=== PATIENT | female | born 1935 | race Caucasian/White ===

== ENCOUNTER 2017-10-05 09:08 | Inpatient (IN) | payer OTHER ==
[~2017-10-05] VITALS: Ht 152.4 cm; Wt 68.9 kg
[2017-10-05 09:49] LABS: BASOPHIL % 0.7 % (0-2); PLATELET COUNT 263 x10^3mcL (130-400); RED CELL DISTRIBUTION WIDTH 13.7 % (11.5-14.5)
[2017-10-05 10:01] LABS: CALCIUM 8.7 mg/dL (8.5-10.1); CARBON DIOXIDE 29.5 mmol/L (21-32); CHLORIDE SERUM 104 mmol/L (98-107); CREATININE SERUM 0.8 mg/dL (0.6-1.0); GLUCOSE SERUM 97 mg/dL (74-106); POTASSIUM SERUM 4.5 mmol/L (3.5-5.1); SODIUM SERUM 140 mmol/L (136-145)
[2017-10-05 10:13] LABS: ALBUMIN 3.7 g/dL (3.4-5.0); ALKALINE PHOSPHATASE 102 U/L (46-116); ALT/SGPT 222 U/L (14-59); AMYLASE 76 U/L (25-115); AST/SGOT 114 U/L (15-37); BILIRUBIN TOTAL 0.6 mg/dL (0.20-1.00); CHOLESTEROL 194 mg/dL (<200); HDL CHOLESTEROL 59 mg/dL (40-60); LIPASE 154 IU/L (73-393); T4(THYROXINE) 8.5 ug/dL (4.7-13.3); TOTAL PROTEIN, SERUM 6.8 g/dL (6.4-8.2)
[2017-10-05] MEDS ORDERED: MULTI-VITAMINS1 TAB (10:56)
[2017-10-05 13:31] VITALS: BP 123/68
[2017-10-05 14:15] LABS: microscopic required? NO
[2017-10-05 14:39] LABS: urine erythrocyte NEGATIVE (NEGATIVE)
[2017-10-05 14:55] LABS: AMPHETAMINE QUAL UR NONE DETECTED (NEG <=1000)
[2017-10-05 14:56] LABS: PHOSPHOROUS 3.9 mg/dL (2.5-4.9)
[2017-10-05 17:16] VITALS: BP 118/76
[2017-10-05 21:21] VITALS: BP 117/60
[2017-10-06 06:03] VITALS: BP 115/60
[2017-10-06 06:27] LABS: CALCIUM 8.6 mg/dL (8.5-10.1); CARBON DIOXIDE 25.7 mmol/L (21-32); CHLORIDE SERUM 106 mmol/L (98-107); CREATININE SERUM 0.7 mg/dL (0.6-1.0); GLUCOSE SERUM 98 mg/dL (74-106); MAGNESIUM 2.1 mg/dL (1.8-2.4); PHOSPHOROUS 3.6 mg/dL (2.5-4.9); SODIUM SERUM 140 mmol/L (136-145)
[2017-10-06 07:00] LABS: BASOPHIL % 0.6 % (0-2); PLATELET COUNT 236 x10^3mcL (130-400); RED CELL DISTRIBUTION WIDTH 13.6 % (11.5-14.5)
[2017-10-06 09:18] VITALS: BP 123/69
[2017-10-06 13:50] VITALS: BP 120/60
[2017-10-06] MEDS ORDERED: ECO81 PO (16:20)
[2017-10-06 16:28] VITALS: BP 126/66
[2017-10-06] MEDS ORDERED: NIT0.4 SL (16:28)
[2017-10-06] MEDS ORDERED: HIBICLENS118 ML TOP (16:49)
[2017-10-06] MEDS ORDERED: MUPIROCIN2% TOP (16:49)
[2017-10-09 08:32] VITALS: Ht 152.4 cm; Wt 68.9 kg
== END 2017-10-06 17:22 | disposition home or self-care (01) | DRG 206 ==
LOC: ED 09:08 → DU 11:46
PROVIDERS: Emergency Medicine; Family Medicine
DX: M94.0 Chondrocostal junction syndrome [Tietze] (principal); I42.9 Cardiomyopathy, unspecified; R74.0 Nonspecific elevation of levels of transaminase and lactic acid dehydrogenase [LDH]; R73.03 Prediabetes; E78.5 Hyperlipidemia, unspecified; Z22.322 Carrier or suspected carrier of Methicillin resistant Staphylococcus aureus; Z68.29 Body mass index [BMI] 29.0-29.9, adult
CPT/HCPCS: 83880; J7030; Q0092

== ENCOUNTER 2018-06-06 11:10 | Inpatient (IN) | payer OTHER ==
[~2018-06-06] VITALS: Ht 152.4 cm; Wt 68.1 kg
[~2018-06-06 11:10] MED LIST: ECO81 PO; HIBICLENS118 ML TOP; MULTI-VITAMINS1 TAB; MUPIROCIN2% TOP; NIT0.4 SL
[2018-06-06 11:18] VITALS: Ht 152.4 cm; Wt 68.1 kg
[2018-06-06 11:44] LABS: CALCIUM 8.8 mg/dL (8.5-10.1); CARBON DIOXIDE 29.1 mmol/L (21-32); CHLORIDE SERUM 105 mmol/L (98-107); CREATININE SERUM 0.9 mg/dL (0.6-1.0); GLUCOSE SERUM 94 mg/dL (74-106); POTASSIUM SERUM 4.2 mmol/L (3.5-5.1); SODIUM SERUM 140 mmol/L (136-145)
[2018-06-06 12:10] LABS: BASOPHIL % 0.6 % (0-2); PLATELET COUNT 269 x10^3mcL (130-400); RED CELL DISTRIBUTION WIDTH 12.3 % (11.5-14.5)
[2018-06-06 14:09] LABS: CHOLESTEROL/HDL RATIO 4.1
[2018-06-06 14:33] VITALS: BP 145/75
[2018-06-06 16:56] VITALS: BP 133/84
[2018-06-06 20:00] VITALS: BP 110/63
[2018-06-07 05:34] VITALS: BP 111/64
[2018-06-07 06:05] LABS: CALCIUM 8.5 mg/dL (8.5-10.1); CARBON DIOXIDE 27.4 mmol/L (21-32); CHLORIDE SERUM 106 mmol/L (98-107); CREATININE SERUM 0.9 mg/dL (0.6-1.0); GLUCOSE SERUM 85 mg/dL (74-106); SODIUM SERUM 139 mmol/L (136-145)
[2018-06-07 06:06] LABS: BASOPHIL % 0.6 % (0-2); PLATELET COUNT 250 x10^3mcL (130-400); RED CELL DISTRIBUTION WIDTH 13.2 % (11.5-14.5)
[2018-06-07 08:09] VITALS: BP 134/77
[2018-06-07 11:30] VITALS: BP 122/72
[2018-06-07 12:02] VITALS: BP 134/77
[2018-06-07 12:26] LABS: microscopic required? NO
[2018-06-07 12:38] LABS: urine erythrocyte NEGATIVE (NEGATIVE)
== END 2018-06-07 12:38 | disposition home or self-care (01) | DRG 195 ==
LOC: ED 11:10 → DU 12:42
PROVIDERS: Emergency Medicine; Internal Medicine
DX: R09.1 Pleurisy (principal); F43.21 Adjustment disorder with depressed mood; I25.10 Atherosclerotic heart disease of native coronary artery without angina pectoris; M60.9 Myositis, unspecified; M19.90 Unspecified osteoarthritis, unspecified site; Z68.28 Body mass index [BMI] 28.0-28.9, adult; Z79.82 Long term (current) use of aspirin; Z63.4 Disappearance and death of family member
CPT/HCPCS: J1885; J7030